=== PATIENT | female | born 1945 | race Caucasian/White ===

== ENCOUNTER 2016-03-24 14:38 | Outpatient (CLI) | END 2016-03-24 14:39 | disposition home or self-care (01) | LOC: AMBL 14:38 | PROVIDERS: ATTEND Emergency Medicine | DX: M54.2 Cervicalgia (principal); M54.9 Dorsalgia, unspecified; R25.1 Tremor, unspecified; E11.9 Type 2 diabetes mellitus without complications; I10 Essential (primary) hypertension; F03.90 Unspecified dementia, unspecified severity, without behavioral disturbance, psychotic disturbance, mood disturbance, and anxiety ==

== ENCOUNTER 2016-06-04 15:01 | Outpatient (CLI) | END 2016-06-04 15:02 | LOC: AMBL 15:01 | PROVIDERS: ATTEND Internal Medicine | DX: M25.551 Pain in right hip (principal); W06.XXXA Fall from bed, initial encounter; Y92.122 Bedroom in nursing home as the place of occurrence of the external cause ==

== ENCOUNTER 2016-07-02 16:47 | Outpatient (CLI) | END 2016-07-02 16:48 | disposition home or self-care (01) | LOC: AMBL 16:47 | PROVIDERS: ATTEND Internal Medicine Geriatric Medicine | DX: R41.82 Altered mental status, unspecified (principal); Z99.81 Dependence on supplemental oxygen ==

== ENCOUNTER 2016-09-20 23:24 | Outpatient (CLI) | END 2016-09-20 23:25 | disposition home or self-care (01) | LOC: AMBL 23:24 | PROVIDERS: ATTEND Family Medicine | DX: R53.83 Other fatigue (principal); E11.649 Type 2 diabetes mellitus with hypoglycemia without coma ==

== ENCOUNTER 2016-11-26 17:50 | Outpatient (CLI) | END 2016-11-26 17:51 | disposition home or self-care (01) | LOC: AMBL 17:50 | PROVIDERS: ATTEND Internal Medicine Geriatric Medicine | DX: R41.82 Altered mental status, unspecified (principal) ==

== ENCOUNTER 2016-12-23 14:09 | Outpatient (CLI) | END 2016-12-23 14:10 | LOC: AMBL 14:09 | DX: R41.82 Altered mental status, unspecified (principal) ==